=== PATIENT | male | born 1955 | race American Indian/Alaskan Native ===

== ENCOUNTER 2018-11-26 12:39 | Emergency (ER) | payer SELFPAY ==
[2018-11-26 13:11] VITALS: BP 138/81
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
== END 2018-11-26 16:36 | disposition left against medical advice (07) ==
LOC: ED 12:39
DX: M54.5 Low back pain (principal); Z53.21 Procedure and treatment not carried out due to patient leaving prior to being seen by health care provider
CPT/HCPCS: 72040; 72100

== ENCOUNTER 2018-11-27 14:51 | Emergency (ER) | payer OTHER ==
[2018-11-27 15:04] VITALS: BP 120/77
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
== END 2018-11-27 18:16 | disposition home or self-care (01) ==
LOC: ED 14:51
DX: S16.1XXA Strain of muscle, fascia and tendon at neck level, initial encounter (principal); S39.012A Strain of muscle, fascia and tendon of lower back, initial encounter; I10 Essential (primary) hypertension; I25.2 Old myocardial infarction; Z88.0 Allergy status to penicillin; V49.49XA Driver injured in collision with other motor vehicles in traffic accident, initial encounter; Y93.89 Activity, other specified; Y92.410 Unspecified street and highway as the place of occurrence of the external cause; Y99.8 Other external cause status

== ENCOUNTER 2020-03-24 00:49 | Emergency (ER) | payer SELFPAY ==
--- NOTE | 2020-03-24 01:28 | XRay Report ---
CHEST 2 VIEWS INDICATION / CLINICAL INFORMATION: sob and wheezing. COMPARISON: None available. FINDINGS: SUPPORT DEVICES: None. HEART / MEDIASTINUM: No significant abnormality. LUNGS / PLEURA: No significant pulmonary or pleural abnormality. No pneumothorax. ADDITIONAL FINDINGS: No significant additional findings. IMPRESSION: 1. No acute findings. Signer Name: Gustavo Gilbert MD Signed: 03/24/2020 1:23 AM Workstation Name: [id number]
--- NOTE | 2020-03-24 02:44 | Emergency Department Report ---
ED General Adult HPI - General Chief complaint: Upper Respiratory Infection Stated complaint: RONAL Time Seen by Provider: 03/24/20 02:10 Source: patient Mode of arrival: Ambulatory Limitations: No Limitations - History of Present Illness Initial comments: 64-year-old male with history of MD, HLD, and pretension presents with complaints of chest congestion and mild cough x1 week. He denies any hemoptysis, fever/chills/sweats, shortness of breath, nausea/vomiting/diarrhea, abdominal pain, dizziness, leg pain/swelling, or smoking. He states he feels like he has been wheezing, but denies any history of asthma. No recent sick contacts per patient or loss of taste/smell. He also denies any chest pain. Patient states he has not been taking any OTC medications for his symptoms. He does admit to yellow mucus production with cough. - Related Data Previous Rx's Medication Instructions Recorded Last Taken Type Cyclobenzaprine [Flexeril] 10 mg PO QHS PRN #20 tablet 11/27/18 Unknown Rx Ibuprofen [Motrin] 800 mg PO Q8HR #30 tablet 11/27/18 Unknown Rx Loratadine 10 mg PO QDAY 10 Days #10 tablet 03/24/20 Unknown Rx guaiFENesin [Guaifenesin] 1,200 mg PO BID PRN #20 tab.er.12h 03/24/20 Unknown Rx Allergies Allergy/AdvReac Type Severity Reaction Status Date / Time guaifenesin [From Robitussin] Allergy Swelling Verified 03/24/20 02:07 Penicillins Allergy Unknown Verified 11/26/18 13:11 ED Review of Systems ROS: Stated complaint: RONAL Other details as noted in HPI Constitutional: denies: chills, diaphoresis, fever, malaise, weakness ENT: denies: throat pain Respiratory: cough. denies: shortness of breath Cardiovascular: denies: chest pain, edema Gastrointestinal: denies: abdominal pain, nausea, vomiting, diarrhea Skin: denies: change in color Neurological: denies: headache Hematological/Lymphatic: denies: swollen glands ED Past Medical Hx - Past Medical History Previous Medical History?: Yes Hx Hypertension: Yes Hx CVA: No Hx Heart Attack/AMI: Yes Hx Congestive Heart Failure: No Hx Diabetes: No Hx Deep Vein Thrombosis: No Hx Pulmonary Embolism: No Hx GERD: No Hx Liver Disease: No Hx Renal Disease: No Hx Sickle Cell Disease: No Hx Arthritis: No Hx Headaches / Migraines: No Hx Seizures: No Hx Kidney Stones: No Hx Psychiatric Treatment: No Hx Asthma: No Hx COPD: No Hx Tuberculosis: No Hx Dementia: No Hx HIV: No - Surgical History Past Surgical History?: Yes Hx Coronary Stent: Yes (x1) Hx Open Heart Surgery: No Hx Pacemaker: No Hx Internal Defibrillator: No Hx Cholecystectomy: No Hx Appendectomy: No Hx Breast Surgery: No Additional Surgical History: stint placement - Social History Smoking Status: Never Smoker Substance Use Type: None - Medications Home Medications: Home Medications Medication Instructions Recorded Confirmed Last Taken Type Cyclobenzaprine [Flexeril] 10 mg PO QHS PRN #20 tablet 11/27/18 Unknown Rx Ibuprofen [Motrin] 800 mg PO Q8HR #30 tablet 11/27/18 Unknown Rx Loratadine 10 mg PO QDAY 10 Days #10 tablet 03/24/20 Unknown Rx guaiFENesin [Guaifenesin] 1,200 mg PO BID PRN #20 tab.er.12h 03/24/20 Unknown Rx ED Physical Exam - General Limitations: No Limitations General appearance: alert, in no apparent distress - Head Head exam: Present: atraumatic, normocephalic - Eye Eye exam: Present: normal appearance. Absent: scleral icterus - Respiratory Respiratory exam: Present: normal lung sounds bilaterally. Absent: respiratory distress, wheezes, rales, rhonchi, stridor, accessory muscle use - Cardiovascular Cardiovascular Exam: Present: regular rate, normal rhythm. Absent: systolic murmur, diastolic murmur, rubs, gallop - Extremities Exam Extremities exam: Absent: calf tenderness - Neurological Exam Neurological exam: Present: alert, oriented X3, normal gait - Psychiatric Psychiatric exam: Present: normal affect, normal mood - Skin Skin exam: Present: warm, dry, intact, normal color. Absent: rash ED Medical Decision Making - Radiology Data Radiology results: report reviewed CHEST 2 VIEWS INDICATION / CLINICAL INFORMATION: sob and wheezing. COMPARISON: None available. FINDINGS: SUPPORT DEVICES: None. HEART / MEDIASTINUM: No significant abnormality. LUNGS / PLEURA: No significant pulmonary or pleural abnormality. No pneumothorax. ADDITIONAL FINDINGS: No significant additional findings. IMPRESSION: 1. No acute findings. - Medical Decision Making 64-year-old male with history of MD, HLD, and pretension presents with complaints of chest congestion and mild cough x1 week. He denies any hemoptysis, fever/chills/sweats, shortness of breath, nausea/vomiting/diarrhea, abdominal pain, dizziness, leg pain/swelling, or smoking. He states he feels like he has been wheezing, but denies any history of asthma. No recent sick contacts per patient or loss of taste/smell. He also denies any chest pain. Patient states he has not been taking any OTC medications for his symptoms. He does admit to yellow mucus production with cough. Lung exam is normal. Chest x-ray is normal. Vitals are normal and patient is afebrile. Will treat for viral lower respiratory tract infection with guaifenesin, Claritin, and vitamin C and zinc. Recommend follow-up with primary care doctor in 3 to 5 days. Discussed signs and symptoms that should prompt immediate return to the emergency department in detail with patient who verbalized understanding. He is well-appearing, his vitals are stable, he is stable for discharge home. Critical care attestation.: If time is entered above; I have spent that time in minutes in the direct care of this critically ill patient, excluding procedure time. ED Disposition Clinical Impression: Viral infection of lower respiratory system Disposition: DC-01 TO HOME OR SELFCARE Is pt being admited?: No Condition: Stable Instructions: Viral Respiratory Infection Additional Instructions: Please take vitamin C and zinc daily Prescriptions: guaiFENesin [Guaifenesin] 1,200 mg PO BID PRN #20 tab.er.12h PRN Reason: Congestion Loratadine 10 mg PO QDAY 10 Days #10 tablet Referrals: [facility] [Provider Group] - 3-5 Days
== END 2020-03-24 03:18 | disposition home or self-care (01) ==
LOC: ED 00:49
DX: J22 Unspecified acute lower respiratory infection (principal); I10 Essential (primary) hypertension; I25.2 Old myocardial infarction; Z98.890 Other specified postprocedural states; Z79.899 Other long term (current) drug therapy; Z88.0 Allergy status to penicillin; Z88.8 Allergy status to other drugs, medicaments and biological substances
CPT/HCPCS: 71046; 99283